=== PATIENT | female | born 1990 | race Asian ===

== ENCOUNTER 2022-04-14 07:37 | Inpatient (IN) ==
[2022-04-14] MEDS ORDERED: PENICILLIN G POTASSIUM 6 MU in DEXTROSE 5% 250 ML IV STA ×2 (08:00→08:07)
[2022-04-14] MEDS ORDERED: OXYTOCIN 30 UNITS/500 ML BAG IV PRN ×3 (08:00→22:07)
--- NOTE | 2022-04-14 08:09 | History & Physical Report ---
Date of Service April 14, 2022 Assessment & Plan (1) 40 weeks gestation of : Plan: Patient presents for induction of labor. fetus category one. Plan pitocin and when in a good pattern, arom. epidural on demand. anticipate . Admission and Anticipated Discharge Date Admission Date: April 14, 2022 History of Present Illness Chief Complaint: postdates induction Primary Care Provider: NO PCP Patient is a 32yoaf, with iup at 40 4/7 who presents for postdates induction. +fm. no lof/vb. Notes some cramping. GBS positive. uncomplicated. and Delivery Plans Flu shot 08/29/21 GBS bacteriuria - treat in labor covid vaccine x 2 OB Labs: Blood Type B Positive 08/29/21 Antibody Screen NEGATIVE 08/29/21 Hemoglobin 11.6 g/dL (12.0-16.0) L 01/20/22 Hematocrit 33.6 % (37-47) L 01/20/22 Mean Corpuscular Volume 76.2 fL (80-100) L 08/29/21 Platelet Count 378 K/uL (130-400) 08/29/21 Rubella IgG Antibody Immune (Immune) 08/29/21 Rapid Plasma Reagin Nonreactive (Nonreactive) 08/29/21 Hepatitis B Surface Antigen Neg (Neg) 08/29/21 HIV (1&2) Ab and P24 Ag, 4th Gener Neg (Neg) 08/29/21 Glucose 1 Hour 50 gm Load 130 mg/dl (70-130) 01/20/22 OB Optional Labs: Chlamydia trachomatis RNA NOT DETECTED (NOT DETECTED) 08/29/21 Neisseria gonorrhoeae RNA NOT DETECTED (NOT DETECTED) 08/29/21 Labs Reviewed: neg cf/sma - sln cf DNA low risk--smp declined msafp--smp GBS positive urine. Allergies Allergy/AdvReac Type Severity Reaction Status Date / Time No Known Allergies Allergy Verified 04/14/22 07:56 Home Medications Medication Instructions Recorded Confirmed Type prenat.vits,elinor,pxf-gsbx-ixxxl 1 tab PO DAILY 08/22/21 04/14/22 History Patient History Medical History Varicella vaccination Surgical History H/O wisdom tooth extraction Family History Grandfather (Paternal) Myocardial infarction Heart disease Dyslipidemia Mother Diabetes Hypertension Dyslipidemia Uncle Diabetes Hypertension Sister Cholestasis Denies family history of Breast cancer Colorectal cancer Social History Smoking Status: Never smoker Second Hand Exposure: No; Hx Alcohol Use: Yes Hx Substance Use: No Preferred Language: Bangladeshi marital status: Single marital status details: martin Flynn (30) [phone] Current Living Situation: Significant Other Current Living Situation Comment: lives with kobi salazar current occupational status: employed and student 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) Vital Signs (Past 12 Hours) Vital Signs Pulse BP 04/14/22 07:51 90 140/76 Coding Level of Care Code None Diagnoses 40 weeks gestation of Z3A.40
[2022-04-14 08:49] LABS: Hematocrit (blood only) 36.5 % (37-47); Hemoglobin 12.5 g/dL (12.0-16.0); Mean Corpuscular Hemoglobin 29.8 pg (25-34); Mean Corpuscular Hgb Conc 34.2 g/dL (32-36); Mean Corpuscular Volume 86.9 fL (80-100); Mean Platelet Volume 10.4 fL (7.4-10.4); Platelet Count 249 K/uL (130-400); RDW Standard Deviation 41.6 fL (36.4-46.3); White Blood Count 8.97 K/uL (4.8-10.8)
[2022-04-14] MEDS: LACTATED RINGER'S 1,000 ML IV PRN ×3 (09:00→17:53)
[2022-04-14] MEDS ORDERED: PENICILLIN G POTASSIUM 3 MU in DEXTROSE 5% 100 ML IV PRN (11:08)
[2022-04-14] MEDS: PENICILLIN G POTASSIUM 3 MU in DEXTROSE 5% 100 ML IV PRN ×3 (12:35→21:13)
[2022-04-14] MEDS ORDERED: ePHEDrine sulfate 50 MG/ML AMP ONE (12:54)
[2022-04-14] MEDS ORDERED: BUPIVACAINE 0.25% 30 ML VIAL ONE ×2 (12:55→14:58)
[2022-04-14] MEDS ORDERED: fentaNYL citrate 100 MCG/2 ML VIAL ONE (12:55)
[2022-04-14] MEDS ORDERED: SODIUM CHLORIDE 0.9% INJ 10 ML VIAL ONE ×2 (12:55→14:58)
[2022-04-14] MEDS ORDERED: fentaNYL 2MCG/ML ROPIVACAINE 1.25MG/ML 100 ML BAG EPI ONE (12:56)
--- NOTE | 2022-04-14 13:11 | Anesthesiology Consultation ---
Date of Service April 14, 2022 Assessment & Plan (1) Encounter for pre-operative examination: Chart Review Chart Review: Acceptable Risk for Labor Epidural Consults Requested none ASA ASA2 Proposed Anesthesia Anesthesia Type: Labor Epidural Risk / Benefits Reviewed With: PT / POA / Parent / Guardian, Accepts Plan and Informed Consent Obtained History Height/Weight Height: 5 ft 5 in Weight: 88.451 kg Allergies Allergy/AdvReac Type Severity Reaction Status Date / Time No Known Allergies Allergy Verified 04/14/22 07:56 Medications Home Medications Medication Instructions Recorded Confirmed Last Taken prenat.vits,elinor,zqc-qrbd-ccnus 1 tab PO DAILY 08/22/21 04/14/22 04/13/22 18:00 Active Medications Generic Name Dose Route Start Last Admin Trade Name Freq PRN Reason Stop Dose Admin Oxytocin 30 units in 500 mls @ 13 mls/hr 04/14/22 08:00 04/14/22 12:25 Pitocin IV 04/16/22 07:59 0.78 units/hr .Q24H PRN 13 mls/hr Labor Induction/Augmentation Titration Protocol 0.78 UNITS/HR Lactated Ringer's 1,000 mls @ 125 mls/hr 04/14/22 08:00 04/14/22 12:48 Lr IV 04/16/22 07:59 125 mls/hr .Q8H PRN Administration L&D Protocol Protocol Penicillin G Potassium 3 mu/ 106 mls @ 100 mls/hr 04/14/22 11:00 04/14/22 12:35 Dextrose IV 04/24/22 10:59 100 mls/hr Q4H PRN Administration GBS(+) Until Delivery Past Medical History Medical History Varicella vaccination Exercise / Class Metabolic Activity II 4-5 Yardwork/Stairs/Walk up hill Past Family History Family History Grandfather (Paternal) Myocardial infarction Heart disease Dyslipidemia Mother Diabetes Hypertension Dyslipidemia Uncle Diabetes Hypertension Sister Cholestasis Denies family history of Breast cancer Colorectal cancer Past Surgical History Surgical History H/O wisdom tooth extraction Past Anesthesia History No Hx of Anesthesia Complications and No Family Hx of Anesthesia Complications History of PONV No Hx of PONV and No Hx of Motion Sickness Social History Smoking Status: Never smoker Hx Alcohol Use: Yes Hx Substance Use: No substance use type: former substance user and marijuana Last Used Substance Other:: Last used May, Physical Exam Vital Signs Last Vital Signs Temp 99.3 F 04/14/22 12:25 Pulse 75 04/14/22 12:20 Resp 18 04/14/22 12:25 BP 131/79 04/14/22 12:20 ENMT Mouth: no dentition abnormality Thyromental Distance: > or= 3.5 Finger Breadths Mallampati Class: II Neck normal visual inspection Respiratory normal respiratory effort Auscultation: lungs clear to auscultation bilaterally Cardiovascular Rate/Rhythm: regular rate and regular rhythm Testing Laboratory Results 04/14/22 08:21
[2022-04-14] MEDS ORDERED: diphenhydrAMINE 50 MG/ML VIAL IV PRN (13:35)
[2022-04-14] MEDS ORDERED: ONDANSETRON INJ 2 MG/ML 2 ML VIAL IV PRN (13:35)
[2022-04-14] MEDS ORDERED: NALOXONE HCL 0.4 MG/1 ML VIAL/CARP IV PRN (13:35)
[2022-04-14] MEDS ORDERED: ePHEDrine sulfate 50 MG/ML AMP IV PRN (13:35)
[2022-04-14] MEDS ORDERED: fentaNYL 2MCG/ML ROPIVACAINE 1.25MG/ML 100 ML BAG EPI PRN (13:35)
[2022-04-14] MEDS ORDERED: NALOXONE HCL 1 MG in SODIUM CHLORIDE 0.9% 1000ML 1,000 ML IV PRN (13:35)
[2022-04-14] MEDS ORDERED: NALBUPHINE HCL INJ 10 MG/ML AMP IV PRN (13:35)
[2022-04-14] MEDS ORDERED: NURSING L&D Epidural Breakthrough Pain Update ONE (14:09)
--- NOTE | 2022-04-14 14:53 | Labor Progress Brief Note ---
Date of Service April 14, 2022 Subjective comfortable Assessment & Plan (1) 40 weeks gestation of : Plan: continue induction. fetus category one. OP currently. Admission and Anticipated Discharge Date Admission Date: April 14, 2022 Physical Exam Physical Exam: cx--4-5/75/-2 arom--minimal fluid toco--q2-3min, pit at 17 efm--130s wtih mod variabiltiy, accels to 160s, no decels Results & Data ([facility]) Vital Signs (Past 12 Hours) Vital Signs Temp Pulse Resp BP Pulse Ox 04/14/22 14:49 76 98 04/14/22 14:44 80 98 04/14/22 14:39 85 97 04/14/22 14:38 82 124/62 04/14/22 14:34 85 97 04/14/22 14:29 86 97 04/14/22 14:24 80 120/66 97 04/14/22 14:19 79 97 04/14/22 14:14 86 97 04/14/22 14:09 80 127/66 97 04/14/22 14:04 76 97 04/14/22 13:59 82 97 04/14/22 13:54 79 98 04/14/22 13:53 86 124/69 04/14/22 13:49 84 97 04/14/22 13:44 83 98 04/14/22 13:41 37.1 C 18 04/14/22 13:39 83 97 04/14/22 13:37 84 130/60 04/14/22 13:34 81 98 04/14/22 13:32 77 137/63 04/14/22 13:30 92 H 143/69 H 04/14/22 13:29 98 H 98 04/14/22 13:24 88 98 04/14/22 13:19 93 H 97 04/14/22 13:14 84 98 04/14/22 13:09 89 99 04/14/22 12:25 37.4 C 18 04/14/22 12:20 75 131/79 04/14/22 10:46 80 131/80 04/14/22 09:47 37.1 C 18 04/14/22 09:09 75 131/87 04/14/22 08:00 37.2 C 90 18 140/76 04/14/22 07:51 90 140/76 Coding Level of Care Code None Diagnoses 40 weeks gestation of Z3A.40
--- NOTE | 2022-04-14 16:45 | Labor Progress Brief Note ---
Date of Service April 14, 2022 Subjective comfortable Assessment & Plan (1) 40 weeks gestation of : Plan: fetus overall reassuring category 2, pit at 19, recheck in a bit and if no change would place iupc. discussed with patient the situation. Admission and Anticipated Discharge Date Admission Date: April 14, 2022 Physical Exam Physical Exam: cx--6/100/-2 toco--difficult tracing, was q 2-3 efm--140s wtih mod variability, accels to , variables with some contractions. Results & Data ([facility]) Vital Signs (Past 12 Hours) Vital Signs Temp Pulse Resp BP Pulse Ox 04/14/22 16:41 95 H 122/69 04/14/22 16:40 92 H 97 04/14/22 16:35 115 H 96 04/14/22 16:30 87 97 04/14/22 16:26 77 122/72 04/14/22 16:25 78 98 04/14/22 16:22 82 130/70 04/14/22 16:19 75 97 04/14/22 16:14 73 98 04/14/22 16:09 75 97 04/14/22 16:08 76 130/72 04/14/22 16:04 79 97 04/14/22 15:59 84 96 04/14/22 15:54 80 97 04/14/22 15:51 76 128/70 04/14/22 15:49 80 98 04/14/22 15:44 80 97 04/14/22 15:39 113 H 97 04/14/22 15:34 83 97 04/14/22 15:33 86 131/70 04/14/22 15:29 98 H 97 04/14/22 15:28 82 129/75 04/14/22 15:24 80 137/72 98 04/14/22 15:19 90 146/81 H 97 04/14/22 15:14 90 97 04/14/22 15:13 80 133/74 04/14/22 15:09 83 129/72 98 04/14/22 15:04 85 97 04/14/22 15:00 37.2 C 18 04/14/22 14:59 91 H 97 04/14/22 14:54 100 H 98 04/14/22 14:53 93 H 116/72 04/14/22 14:49 76 98 04/14/22 14:44 80 98 04/14/22 14:39 85 97 04/14/22 14:38 82 124/62 04/14/22 14:34 85 97 04/14/22 14:29 86 97 04/14/22 14:24 80 120/66 97 04/14/22 14:19 79 97 04/14/22 14:14 86 97 04/14/22 14:09 80 127/66 97 04/14/22 14:04 76 97 04/14/22 13:59 82 97 04/14/22 13:54 79 98 04/14/22 13:53 86 124/69 04/14/22 13:49 84 97 04/14/22 13:44 83 98 04/14/22 13:41 37.1 C 18 04/14/22 13:39 83 97 04/14/22 13:37 84 130/60 04/14/22 13:34 81 98 04/14/22 13:32 77 137/63 04/14/22 13:30 92 H 143/69 H 04/14/22 13:29 98 H 98 04/14/22 13:24 88 98 04/14/22 13:19 93 H 97 04/14/22 13:14 84 98 04/14/22 13:09 89 99 04/14/22 12:25 37.4 C 18 04/14/22 12:20 75 131/79 04/14/22 10:46 80 131/80 04/14/22 09:47 37.1 C 18 04/14/22 09:09 75 131/87 04/14/22 08:00 37.2 C 90 18 140/76 04/14/22 07:51 90 140/76 Coding Level of Care Code None Diagnoses 40 weeks gestation of Z3A.40
--- NOTE | 2022-04-14 17:50 | Labor Progress Brief Note ---
Date of Service April 14, 2022 Subjective comfortable Assessment & Plan (1) 40 weeks gestation of : Plan: category two strip, variablity reassuring. making slow but positive change. Discussed the situation with so and patient. Expressed my concern about intermittent concerning fht tracing. Discussed still far away from vaginal delivery. If progress stops with pit off and unable to restart pit or does not tolerate, will need to proceed with c/s. Will continue to watch the fetus closely. Changing position frequently. Admission and Anticipated Discharge Date Admission Date: April 14, 2022 Physical Exam Physical Exam: cx--8/100/-1 toco--q2-4min, pit off now because of prolonged decel efm--150s wtih mod variability, had prolonged decel for 7 minutes. resolved with pit off, position change, oxygen. now continues to have variables with contractions, mod variability, baseline 150s Results & Data ([facility]) Vital Signs (Past 12 Hours) Vital Signs Temp Pulse Resp BP Pulse Ox 04/14/22 17:41 95 H 121/63 04/14/22 17:40 96 H 99 04/14/22 17:35 101 H 100 04/14/22 17:30 102 H 99 04/14/22 17:27 93 H 121/64 04/14/22 17:25 95 H 97 04/14/22 17:20 90 97 04/14/22 17:15 97 04/14/22 17:13 100 H 125/78 04/14/22 17:10 37.2 C 98 H 18 97 04/14/22 17:05 104 H 98 04/14/22 17:00 83 97 04/14/22 16:57 101 H 134/68 04/14/22 16:55 86 97 04/14/22 16:50 90 97 04/14/22 16:45 94 H 97 04/14/22 16:41 95 H 122/69 04/14/22 16:40 92 H 97 04/14/22 16:35 115 H 96 04/14/22 16:30 87 97 04/14/22 16:26 77 122/72 04/14/22 16:25 78 98 04/14/22 16:22 82 130/70 04/14/22 16:19 75 97 04/14/22 16:14 73 98 04/14/22 16:10 37.2 C 04/14/22 16:09 75 97 04/14/22 16:08 76 130/72 04/14/22 16:04 79 97 04/14/22 15:59 84 96 04/14/22 15:54 80 97 04/14/22 15:51 76 128/70 04/14/22 15:49 80 98 04/14/22 15:44 80 97 04/14/22 15:39 113 H 97 04/14/22 15:34 83 97 04/14/22 15:33 86 131/70 04/14/22 15:29 98 H 97 04/14/22 15:28 82 129/75 04/14/22 15:24 80 137/72 98 04/14/22 15:19 90 146/81 H 97 04/14/22 15:14 90 97 04/14/22 15:13 80 133/74 04/14/22 15:09 83 129/72 98 04/14/22 15:04 85 97 04/14/22 15:00 37.2 C 18 04/14/22 14:59 91 H 97 04/14/22 14:54 100 H 98 04/14/22 14:53 93 H 116/72 04/14/22 14:49 76 98 04/14/22 14:44 80 98 04/14/22 14:39 85 97 04/14/22 14:38 82 124/62 04/14/22 14:34 85 97 04/14/22 14:29 86 97 04/14/22 14:24 80 120/66 97 04/14/22 14:19 79 97 04/14/22 14:14 86 97 04/14/22 14:09 80 127/66 97 04/14/22 14:04 76 97 04/14/22 13:59 82 97 04/14/22 13:54 79 98 04/14/22 13:53 86 124/69 04/14/22 13:49 84 97 04/14/22 13:44 83 98 04/14/22 13:41 37.1 C 18 04/14/22 13:39 83 97 04/14/22 13:37 84 130/60 04/14/22 13:34 81 98 04/14/22 13:32 77 137/63 04/14/22 13:30 92 H 143/69 H 04/14/22 13:29 98 H 98 04/14/22 13:24 88 98 04/14/22 13:19 93 H 97 04/14/22 13:14 84 98 04/14/22 13:09 89 99 04/14/22 12:25 37.4 C 18 04/14/22 12:20 75 131/79 04/14/22 10:46 80 131/80 04/14/22 09:47 37.1 C 04/14/22 09:09 75 131/87 04/14/22 08:00 37.2 C 90 18 140/76 04/14/22 07:51 90 140/76 Coding Level of Care Code None Diagnoses 40 weeks gestation of Z3A.40
[2022-04-14] MEDS ORDERED: DIPHTHERIA/TETANUS/PERTUSSIS 0.5 ML SYR/VIAL IM ONE (22:07)
[2022-04-14] MEDS ORDERED: ACETAMINOPHEN 325 MG TAB PO PRN (22:07)
[2022-04-14] MEDS ORDERED: BENZOCAINE 20% AER SPR 82.5 GM CAN EXT PRN (22:07)
[2022-04-14] MEDS ORDERED: oxyCODONE/ACETAMINOPHEN 5mg/325mg TAB PO PRN (22:07)
[2022-04-14] MEDS ORDERED: HYDROCORTISONE ACETATE 25 MG SUPP PR PRN (22:07)
--- NOTE | 2022-04-14 22:11 | Delivery Summary ---
Vaginal Delivery Summary Date of Service April 14, 2022 Vaginal Delivery Summary and 2nd Degree LAC Pre-operative Diagnosis: at 40 4/7 weeks postdates induction GBS positive Post-operative Diagnosis: same nuchal cord Procedure: pitocin induction epidural arom second degree laceration and repair EBL: 400cc Anesthesia: epidural Procedure: The patient presented for postdates induction. she had a favorable cervix. Started pitocin and then got epidural and arom with clear fluid. She progressed to c/c/+2 station after laboring down. Fetus had variables with contractions. The patient pushed for about one hour to deliver a viable male infant in DAVID position. The nose and mouth were bulb suctioned on the perineum, a nuchal cord x 1 was reduced and the rest of the infant was then delivered without difficulty. The baby was vigorous. The nose and mouth were again bulb suctioned and the was placed in the maternal abdomen for drying and attention. Cord was clamped and cut at one minute of life. Cord blood and segment obtained. Placenta delivered spontaneous, intact with a three vessel cord. Cervix/sulci/rectum were intact. A second degree perineal laceration was repaired in the normal standard fashion. Hemostasis obtained with dilute pitocin and fundal massage. Apgars were 8/9. Mother and baby doing well at the end of the delivery. [facility] [place] Charge Delivery Type Details: and 2nd Degree LAC
[2022-04-15] MEDS: IBUPROFEN 600 MG TAB PO PRN ×3 (00:38→20:41)
--- NOTE | 2022-04-15 06:18 | Obstetrical Progress Note ---
Date of Service <Stewart Mcgovern DO - Last Filed: 04/15/22 08:08> April 15, 2022 Assessment & Plan <Stewart Mcgovern DO - Last Filed: 04/15/22 08:08> (1) Encounter for care and examination after delivery: 32 yo post day 1 from vaginal delivery, doing well. -Continue routine post care. -vital signs reviewed and WNL. (Tmax 37.5) -Blood type B+, GBS negative, Rubella immune -Encourage ambulation, monitor and control pain with Motrin, tylenol PRN, resume regular diet, monitor lochia. -encourage breast feeding. <Vanna Solorzano MD, FACOG - Last Filed: 04/15/22 08:16> (1) Encounter for care and examination after delivery: Subjective <Stewart Mcgovern DO - Last Filed: 04/15/22 08:08> Ambulation: ambulating normally Voiding: no voiding problems Passing Gas:: Yes Diet Tolerance:: regular diet Lochia:: Moderate Feeding Type:: breast feeding Current Pain Level(1-10): 0 Without complaints other than cramping. Review of Systems Denies fever, chills, sweats Denies shortness of breath, difficulty breathing, chest pain, palpitations, chest pressure. Denies breast pain. Denies dysuria. Denies headache or changes in vision Physical Exam <Stewart Mcgovern DO - Last Filed: 04/15/22 08:08> General: Alert, oriented. No acute distress. Cardiac: Regular rate and rhythm, no murmurs/rubs/gallops. Respiratory: Clear to auscultation bilaterally a/p, no wheezes/rales/rhonchi. No increased work of breathing. Symmetrical chest rise. No respiratory distress. Abdomen: Soft, nontender, nondistended. Bowel sounds present. Uterus: Uterine fundus firm, palpable 1 cm below umbilicus. Lower Extremities: No lower extremity edema or swelling. No deep calf pain. Bon's negative bilaterally Results & Data ([facility]) <Stewart Mcgovern DO - Last Filed: 04/15/22 08:08> Vital Signs (Past 12 Hours) Vital Signs Temp Pulse Pulse Resp BP BP Pulse Ox 04/15/22 04:30 36.6 C 80 20 119/77 98 04/15/22 00:55 37.5 C 109 H 20 117/70 96 04/15/22 00:02 115 H 127/66 04/15/22 00:00 36.9 C 18 04/14/22 23:48 58 L 132/68 04/14/22 23:32 117 H 117/72 04/14/22 23:30 20 04/14/22 23:18 112 H 118/72 04/14/22 23:02 117 H 108/56 L 04/14/22 23:00 20 04/14/22 22:48 112 H 114/58 L 04/14/22 22:45 18 04/14/22 22:33 115 H 123/60 04/14/22 22:30 20 04/14/22 22:17 113 H 123/61 04/14/22 22:15 20 04/14/22 22:02 113 H 118/58 L 04/14/22 22:00 112 H 18 96 04/14/22 21:55 120 H 96 04/14/22 21:50 133 H 95 04/14/22 21:45 137 H 97 04/14/22 21:43 130 H 154/73 H 04/14/22 21:40 153 H 97 04/14/22 21:35 132 H 96 04/14/22 21:30 144 H 20 97 04/14/22 21:25 138 H 97 04/14/22 21:20 135 H 97 04/14/22 21:15 139 H 98 04/14/22 21:11 139 H 135/71 04/14/22 21:10 143 H 97 04/14/22 21:05 138 H 97 04/14/22 21:01 146 H 93 04/14/22 21:00 144 H 20 98 04/14/22 20:57 148 H 119/71 04/14/22 20:55 143 H 98 04/14/22 20:51 37.2 C 04/14/22 20:50 145 H 97 04/14/22 20:45 142 H 97 04/14/22 20:42 125 H 166/65 H 04/14/22 20:40 122 H 98 04/14/22 20:35 121 H 98 04/14/22 20:30 120 H 20 98 04/14/22 20:27 117 H 122/57 L 04/14/22 20:25 125 H 96 04/14/22 20:20 122 H 97 04/14/22 20:15 116 H 97 04/14/22 20:11 117 H 127/64 04/14/22 20:10 124 H 97 04/14/22 20:05 119 H 97 04/14/22 20:00 121 H 18 97 04/14/22 19:56 118 H 123/66 04/14/22 19:55 113 H 97 04/14/22 19:50 117 H 97 04/14/22 19:45 116 H 97 04/14/22 19:42 113 H 123/59 L 04/14/22 19:40 115 H 97 04/14/22 19:35 111 H 97 04/14/22 19:30 113 H 18 97 04/14/22 19:27 117 H 134/73 04/14/22 19:25 116 H 98 04/14/22 19:20 116 H 97 04/14/22 19:15 37.5 C 112 H 18 97 04/14/22 19:11 117 H 137/76 04/14/22 19:10 105 H 98 04/14/22 19:05 100 H 98 04/14/22 19:00 107 H 98 04/14/22 18:55 96 H 98 04/14/22 18:50 107 H 97 04/14/22 18:45 112 H 97 04/14/22 18:41 79 125/76 04/14/22 18:40 87 99 04/14/22 18:35 100 H 99 04/14/22 18:30 102 H 99 04/14/22 18:26 93 H 122/68 04/14/22 18:25 102 H 99 04/14/22 18:20 98 H 98 <Vanna Solorzano MD, FACOG - Last Filed: 04/15/22 08:16> Co-Signing Physician Notes Resident Physician Supervision Note: I interviewed and examined the patient. Discussed with Dr. Lee and agree with findings and plan as documented in the note. Any exceptions or clarifications are listed here: Doing well. Routine pp care. Documented By: Vanna Solorzano MD, FACOG Resident Activity Tracking <Stewart Mcgovern DO - Last Filed: 04/15/22 08:08> Resident Involvement: Resident Care Provided Care Provided: OB Delivery
[2022-04-15 06:44] LABS: Hematocrit (blood only) 33.2 % (37-47); Hemoglobin 11.3 g/dL (12.0-16.0)
[2022-04-15] MEDS: DOCUSATE SODIUM 100 MG CAP PO SCH ×2 (08:18→20:40)
[2022-04-15] MEDS: PRENATAL VITAMIN 1 TAB PO SCH (08:18)
[2022-04-15] MEDS ORDERED: bisacodyL 5 MG TABEC PO SCH (20:00)
--- NOTE | 2022-04-15 21:39 | Anesthesia Procedure Note ---
Date of Service April 15, 2022 Anesthesia Post Epidural Note Vital Signs Vital Signs: Temp Pulse Resp BP Pulse Ox 36.9 C 93 H 18 123/76 99 04/15/22 15:15 04/15/22 15:15 04/15/22 15:15 04/15/22 15:15 04/15/22 15:15 Pain Intensity Right Hip: Pain Intensity: 0 Episiotomy/Laceration: Pain Intensity: 2 Sacrum: Pain Intensity: 2 Notes Mental Status: alert / awake / arousable Nausea / Vomiting: adequately controlled Pain: adequately controlled Airway Patency, RR, SpO2: stable & adequate BP & HR: stable & adequate Hydration State: stable & adequate Neuraxial Anesthesia: was administered and sensory block is resolving Anesthetic Complications: no major complications apparent and Pt Satisfied with anesthetic care Epidural: Removed without complications and With tip intact
[2022-04-16] MEDS ORDERED: bisacodyL 10 MG SUPP PR PRN
--- NOTE | 2022-04-16 06:20 | Obstetrical Progress Note ---
Date of Service <Stewart Mcgovern DO - Last Filed: 04/16/22 07:18> April 16, 2022 Assessment & Plan <Stewart Mcgovern DO - Last Filed: 04/16/22 07:18> (1) Encounter for care and examination after delivery: 32 yo post day 2 from vaginal delivery, doing well. -Continue routine post care. -vital signs reviewed and WNL. (Tmax 37.5) -Blood type B+, GBS negative, Rubella immune -Encourage ambulation, monitor and control pain with Motrin, tylenol PRN, resume regular diet, monitor lochia. -encourage breast feeding. -Discussed discharge with patient. Patient will follow up with Dr. Solorzano in 6 weeks. <Cara Leary MD, FACOG - Last Filed: 04/16/22 08:48> (1) Encounter for care and examination after delivery: Subjective <Stewart Mcgovern DO - Last Filed: 04/16/22 07:18> Ambulation: ambulating normally Voiding: no voiding problems Passing Gas:: Yes Diet Tolerance:: regular diet Lochia:: Small Feeding Type:: breast feeding Current Pain Level(1-10): 0 Review of Systems Denies fever, chills, sweats Denies shortness of breath, difficulty breathing, chest pain, palpitations, chest pressure. Denies breast pain. Denies dysuria. Denies headache or changes in vision Physical Exam <Stewart Mcgovern DO - Last Filed: 04/16/22 07:18> General: Alert, oriented. No acute distress. Cardiac: Regular rate and rhythm, no murmurs/rubs/gallops. Respiratory: Clear to auscultation bilaterally a/p, no wheezes/rales/rhonchi. No increased work of breathing. Symmetrical chest rise. No respiratory distress. Abdomen: Soft, nontender, nondistended. Bowel sounds present. Uterus: Uterine fundus firm, palpable 2 cm below umbilicus. Lower Extremities: No lower extremity edema or swelling. No deep calf pain. Bon's negative bilaterally Results & Data ([facility]) <Stewart Mcgovern DO - Last Filed: 04/16/22 07:18> Vital Signs (Past 12 Hours) Vital Signs Temp Pulse Resp BP Pulse Ox 04/16/22 01:00 36.4 C L 83 20 118/79 96 04/15/22 20:30 36.4 C L 96 H 20 120/83 98 <Cara Leary MD, FACOG - Last Filed: 04/16/22 08:48> Co-Signing Physician Notes Resident Physician Supervision Note: I was present with Dr. Mcgovern during the history and exam. I discussed the case with the resident and agree with the findings and plan as documented in the note. Any exceptions or clarifications are listed here: [None] Documented By: Cara Leary MD, FACOG Resident Activity Tracking <Stewart Mcgovern DO - Last Filed: 04/16/22 07:18> Resident Involvement: Resident Care Provided Care Provided: OB Delivery
[2022-04-16] MEDS: IBUPROFEN 600 MG TAB PO PRN (09:09)
[2022-04-16] MEDS: PRENATAL VITAMIN 1 TAB PO SCH (09:09)
[2022-04-16] MEDS: DOCUSATE SODIUM 100 MG CAP PO SCH (09:09)
== END 2022-04-16 14:36 | disposition home or self-care (01) | DRG 807 ==
LOC: 4S1 07:37 → 4E2 04-15 01:02